=== PATIENT | female | born 1955 | race Caucasian/White ===

== ENCOUNTER 2017-06-01 09:39 | Emergency (ER) | payer BC, SELFPAY ==
[~2017-06-01] VITALS: Ht 157.5 cm; Wt 60.8 kg
[~2017-06-01 09:39] MED LIST: ALBU90OI INH; ALBU90OI6 INH; AMOCLA875 PO; AZIT250 PO; Amoxicillin500 MG PO; Amoxicillin875 MG PO; Ativan1 MG PO; BENZ100A PO; CEPH500 PO; CHRO200; Ciloxan5 ML RIGHTEAR; Cyclobenzaprine5 MG PO; DOXY100 PO; ESCI10; HYDACE5 PO; HYDR1TAB94 PO; IBUP200; IBUP800 PO; LANS30EC; LEVSOD100 PO; LEVSOD88; LEVSOD88 PO; LORA10ER; METPRE4DP PO; MULVITMIND; NAPR500 PO; Norco 5-325 Ta1 EACH PO; PHENTERMINE 37.5 MG; PROCODE120 PO; PSEU120ER PO; Prednisone20 MG PO; RXHYDACE PO; RXOXYACE PO; RXSULTRIDS PO; SPACE CHAMBER1 EACH MC; SULTRIDS PO; Synthroid88 MCG PO; TRAM50 PO; Ultram50 MG PO; VARE1 PO
[2017-06-01] MEDS ORDERED: HINGED KNEE SUPPORT (10:20)
[2017-06-01] MEDS ORDERED: Norco 5-325 Ta1 EACH PO (10:20)
== END 2017-06-01 11:02 | disposition home or self-care (01) ==
LOC: ER 09:39
DX: M25.562 Pain in left knee (principal); E03.9 Hypothyroidism, unspecified; F17.200 Nicotine dependence, unspecified, uncomplicated; Z88.5 Allergy status to narcotic agent; Z88.4 Allergy status to anesthetic agent; Z79.899 Other long term (current) drug therapy; Z79.52 Long term (current) use of systemic steroids
CPT/HCPCS: 73562-LT; 99283

== ENCOUNTER 2017-08-02 11:41 | Emergency (ER) | payer BC, SELFPAY ==
[~2017-08-02] VITALS: Ht 157.5 cm; Wt 56.2 kg
[~2017-08-02 11:41] MED LIST changes: +HINGED KNEE SUPPORT
[2017-08-02] MEDS ORDERED: EAR WAX DROPS15 ML RIGHTEAR (12:21)
[2017-08-02] MEDS ORDERED: NEOPOLHCSU LEFTEAR (12:21)
== END 2017-08-02 12:36 | disposition home or self-care (01) ==
LOC: ER 11:41
DX: H61.23 Impacted cerumen, bilateral (principal); H60.92 Unspecified otitis externa, left ear; E03.9 Hypothyroidism, unspecified; Z88.5 Allergy status to narcotic agent; Z88.8 Allergy status to other drugs, medicaments and biological substances; Z79.899 Other long term (current) drug therapy
CPT/HCPCS: 99283

== ENCOUNTER → 2020-02-07 | Outpatient (CLI) | payer BC ==
[~2020-02-07] MED LIST changes: +EAR WAX DROPS15 ML RIGHTEAR; +NEOPOLHCSU LEFTEAR
[2020-02-07 07:03] LABS: BASOPHILS ABSOLUTE AUTO 0.03 K/mm3 (0.00-0.23); BASOPHILS PERCENT AUTO 0 % (0-2); EOSINOPHILS PERCENT AUTO 2 % (0-6); Hematocrit 41.9 % (33.0-51.0); Hemoglobin 13.3 g/dL (11.5-16.0); IMMATURE GRAN ABSOLUTE AUTO 0.04 K/mm3 (0.00-0.10); IMMATURE GRAN PERCENT AUTO 0 % (0-1); LYMPHOCYTES ABSOLUTE AUTO 2.24 K/mm3 (0.84-5.20); LYMPHOCYTES PERCENT AUTO 24 % (21-46); MONOCYTES ABSOLUTE AUTO 0.71 K/mm3 (0.16-1.47); MONOCYTES PERCENT AUTO 8 % (4-13); Mean Corpuscular HGB 30.7 pg (26.0-34.0); Mean Corpuscular HGB Conc 31.7 g/dL (31.5-36.5); Mean Corpuscular Volume 97 fL (80-100); Mean Platelet Volume 11.8 fL (9.1-12.4); NEUTROPHILS ABSOLUTE AUTO 6.11 K/mm3 (1.96-9.15); NEUTROPHILS PERCENT AUTO 66 % (41-73); Platelet Count 210 K/mm3 (150-400); RDW Coefficient Variation 12.9 % (11.7-14.2); RDW Standard Deviation 45.8 fL (35.1-46.3); Red Blood Cell Count 4.33 M/mm3 (3.80-5.20); White Blood Cell Count 9.33 K/mm3 (4.00-11.30)
[2020-02-07 07:31] LABS: Alanine Aminotransfer (ALT/SGP 30 U/L (12-78); Albumin, Blood 3.5 g/dL (3.4-5.0); Alk Phos 86 U/L (50-136); Anion Gap 5 mmol/L (6-16); Aspartate Aminotrans (AST/SGOT 31 U/L (12-37); Bilirubin, Total 0.4 mg/dL (0.1-1.0); Blood Urea Nitrogen 12 mg/dL (8-24); Bun/Creatinine Ratio 13.5 (12.0-20.0); CHOL/HDL RATIO 2.7; CO2, Blood 25 mmol/L (21-32); Calcium, Blood 8.8 mg/dL (8.5-10.1); Chloride, Blood 112 mmol/L (98-108); Cholesterol 211 mg/dL (50-200); Creatinine, Blood 0.89 mg/dL (0.40-1.00); Globulin, Blood 3.5 g/dL (2.2-4.0); Glomerular Filtration Rate >60 (60-); Glucose, Blood 118 mg/dL (70-99); HDL Cholesterol 78 mg/dL (>39); LDL/HDL RATIO 1.5; Low Density Lipoprotein Chol 114 mg/dL (0-110); Potassium, Blood 4.3 mmol/L (3.5-5.5); Sodium, Blood 142 mmol/L (136-145); Thyroid Stimulating Hormone 0.779 uIU/mL (0.360-4.800); Triglycerides 96 mg/dL (30-160); Very Low Density Lipoprot Chol 19 mg/dL (6-32)
== END | disposition home or self-care (01) ==
LOC: LAB 06:17 → LAB FUT 11-08 16:00
PROVIDERS: Physician Assistant
DX: E11.9 Type 2 diabetes mellitus without complications (principal); E78.00 Pure hypercholesterolemia, unspecified; I10 Essential (primary) hypertension; E03.9 Hypothyroidism, unspecified
CPT/HCPCS: 36415; 80053; 80061; 82043; 83036; 84443; 85025

== ENCOUNTER 2024-01-21 19:27 | Emergency (ER) | payer MEDICARE ==
[~2024-01-21] VITALS: Ht 160 cm; Wt 68.0 kg
[2024-01-21] MEDS ORDERED: Ketorolac Tromethamine 15mg Vial IM ONE (19:45)
[2024-01-21] MEDS ORDERED: Acetaminophen 500 MG Tab PO ONE (19:50)
[2024-01-21] MEDS ORDERED: IBUP600 PO (21:30)
[2024-01-21] MEDS ORDERED: ACET500 PO (21:30)
[2024-01-21 22:09] VITALS: BP 130/65
== END 2024-01-21 22:10 | disposition home or self-care (01) ==
LOC: ER 19:27
DX: M25.562 Pain in left knee (principal); R42 Dizziness and giddiness; W19.XXXA Unspecified fall, initial encounter; Z88.5 Allergy status to narcotic agent; Z88.8 Allergy status to other drugs, medicaments and biological substances; Z79.899 Other long term (current) drug therapy; E03.9 Hypothyroidism, unspecified
CPT/HCPCS: 73562-LT; 93005; 93010; 96372; 99284-25; A9270; J1885

== ENCOUNTER 2024-09-21 12:54 | Emergency (ER) | payer BC, OTHER ==
[~2024-09-21] VITALS: Ht 154.9 cm; Wt 81.7 kg
[~2024-09-21 12:54] MED LIST changes: +ACET500 PO; +IBUP600 PO
[2024-09-21 13:00] VITALS: BP 159/73
[2024-09-21] MEDS ORDERED: Ketorolac Tromethamine 30mg Vial IM ONE (13:10)
[2024-09-21] MEDS ORDERED: Lidocaine 4% 1 Patch TOP ONE (13:20)
[2024-09-21] MEDS ORDERED: TIZA4 PO (13:23)
[2024-09-21] MEDS ORDERED: ASPERFLEX1 EACH TOP (13:23)
== END 2024-09-21 13:33 | disposition home or self-care (01) ==
LOC: ER 12:54
DX: M54.50 Low back pain, unspecified (principal); G89.29 Other chronic pain; Z88.0 Allergy status to penicillin; Z88.5 Allergy status to narcotic agent; Z79.899 Other long term (current) drug therapy; Z79.51 Long term (current) use of inhaled steroids; Z79.1 Long term (current) use of non-steroidal anti-inflammatories (NSAID); Z79.83 Long term (current) use of bisphosphonates; Z79.891 Long term (current) use of opiate analgesic; Z88.4 Allergy status to anesthetic agent
CPT/HCPCS: A9270; J1885